=== PATIENT | male | born 1960 | race Caucasian/White ===

== ENCOUNTER 2016-09-05 10:38 | Inpatient (IN) | payer MEDICARE, MEDICAID ==
[2016-09-05] MEDS ORDERED: LEXAPRO10 M2 PO (10:48)
[2016-09-05] MEDS ORDERED: OMEPRAZOLE20 M3 PO (10:48)
[2016-09-05] MEDS ORDERED: VENTOLIN HFA18 G2 PO (10:49)
[2016-09-05] MEDS ORDERED: MEGESTROL ACETA40 M1 PO (10:49)
[2016-09-05] MEDS ORDERED: HYDROCHLOROTH12.5 M2 PO (10:50)
[2016-09-05] MEDS ORDERED: ASPIR 8181 M1 PO (12:51)
[2016-09-05] MEDS ORDERED: CHEMO (12:53)
[2016-09-05 17:38] LABS: POTASSIUM 3.4 mmol/L (3.7-5.1); SODIUM 129 mmol/L (135-145); T4 (THYROXINE) 10.8 ug/dl (5.0-12.6)
[2016-09-05 17:41] LABS: TSH-THYROID STIMULATING HORM. 1.97 uIU/ml (0.40-3.80)
[2016-09-05 21:24] LABS: URINE CREATININE-RANDOM 113 mg/dl (30-125); URINE SODIUM-RANDOM 21 mmol/L (20-110)
[2016-09-05 21:49] LABS: URINE POTASSIUM RANDOM 52 mmol/L (12-62)
[2016-09-06 00:29] LABS: POTASSIUM 3.5 mmol/L (3.7-5.1)
[2016-09-06 05:57] LABS: BLOOD UREA NITROGEN 7 mg/dl (6-24); CHLORIDE 94 mmol/l (96-110); CREATININE 0.53 mg/dl (0.60-1.30); GLUCOSE 93 mg/dL (70-110); MAGNESIUM 1.6 mg/dl (1.8-2.6); POTASSIUM 3.8 mmol/L (3.7-5.1); SODIUM 127 mmol/L (135-145); eGFR VALUE FOR BLACK >90 mL/Min
[2016-09-06 06:12] LABS: ANION GAP 13 mmol/L (0-20); CARBON DIOXIDE-VENOUS 24 mmol/L (22-32)
[2016-09-06 12:12] LABS: POTASSIUM 3.5 mmol/L (3.7-5.1)
[2016-09-06] MEDS ORDERED: NORCO 5-325 TA1 EACH PO (16:12)
[2016-09-06] MEDS ORDERED: TYLENOL325 M2 PO (16:13)
== END 2016-09-06 17:10 | disposition hospice, home (50) | DRG 641 ==
LOC: 5WF 10:38
PROVIDERS: Internal Medicine Nephrology; ADMIT Internal Medicine Hematology & Oncology
DX: E87.1 Hypo-osmolality and hyponatremia (principal); E86.9 Volume depletion, unspecified; R64 Cachexia; C15.9 Malignant neoplasm of esophagus, unspecified; C79.9 Secondary malignant neoplasm of unspecified site; E46 Unspecified protein-calorie malnutrition; I10 Essential (primary) hypertension; F32.9 Major depressive disorder, single episode, unspecified; E78.5 Hyperlipidemia, unspecified; Z51.5 Encounter for palliative care; K21.9 Gastro-esophageal reflux disease without esophagitis; F17.210 Nicotine dependence, cigarettes, uncomplicated; F41.9 Anxiety disorder, unspecified; Z68.21 Body mass index [BMI] 21.0-21.9, adult; Z66 Do not resuscitate; Z88.8 Allergy status to other drugs, medicaments and biological substances; Z79.82 Long term (current) use of aspirin; Z79.899 Other long term (current) drug therapy
CPT/HCPCS: J1650; J3480; J7030